=== PATIENT | female | born 1975 | race Caucasian/White ===

== ENCOUNTER 2016-10-18 18:24 | Emergency (ER) | payer MEDICAID ==
[~2016-10-18] VITALS: Wt 80.9 kg
[~2016-10-18 18:24] MED LIST: ACET1TAB40 PO; ALBU8.5H3 INH; CALC600T PO; FERR-55 PO; INSU500V SC; METF500T PO; NPH,100I5 SQ; PRED20TA PO; PREN1TAB13 PO
[2016-10-18] MEDS ORDERED: BENZ100C70 PO (19:55)
[2016-10-18] MEDS ORDERED: AZIT250T94 PO (19:55)
[2016-10-18] MEDS ORDERED: ALBU18HF INHALATION (19:55)
[2016-10-18 20:09] VITALS: BP 136/80; PULSE 90; RESP 18; TEMP 98.4
--- NOTE | 2016-10-18 20:57 | ERD ---
ER Documentation Chief Complaint Date/Time DATE: 10/18/16 TIME: 20:53 Chief Complaint COUGH X3 WKS, WHEEZING X3 DAYS, SORE THROAT HPI Patient is a 41-year-old female with diabetes who presents with a cough. The cough started 3 weeks ago. The patient has wheezing for the past 4 days. She has pain in her upper back. She has had no treatment as of yet. She denies fevers. Upon review of old medical records she has multiple visits to the ER for various complaints. She says her primary doctor is at [facility]. ROS All systems reviewed and are negative except as per history of present illness. Medications Home Meds Active Scripts Benzonatate* (Tessalon Perle*) 100 Mg Capsule, 100 MG PO Q8H Y for COUGH, #30 CAP Prov:MADISON MONTANA MD 10/18/16 Albuterol Sulfate* (Ventolin HFA*) 18 Gm Hfa.aer.ad, 2 PUFF INHALATION Q4H, #1 INHALER Prov:MADISON MONTANA MD 10/18/16 Azithromycin* (Zithromax*) 250 Mg Tablet, 250 MG PO .ZPACK DIRECTED, #6 TAB TAKE 500 MG (2 TABS) THE FIRST DAY THEN 250 MG (1 TAB) DAYS 2-5 Prov:MADISON MONTANA MD 10/18/16 Prednisone* (Prednisone*) 20 Mg Tab, 60 MG PO DAILY for 4 Days, TAB Prov:NITZA LEVY I. [employer]OR RELATIONS MANAGER 10/16/15 Albuterol Sulfate* (Proair HFA*) 8.5 Gm Hfa.aer.ad, 2 PUFF INH Q4, #1 INHALER Prov:NITZA LEVY I. DONOR RELATIONS MANAGER 10/16/15 Acetaminophen-Codeine* (Acetaminophen-Cod #3*) 300-30 Mg Tab, 1 TAB PO Q4H Y for PAIN, #14 TAB Prov:IOANA HERNANDEZ MD 04/12/15 Reported Medications Calcium Carbonate (Calcium) 600 Mg Tablet, 600 MG PO DAILY 04/16/14 Metformin Hcl (Glucophage) 500 Mg Tablet, 500 MG PO HS, TAB 04/16/14 NPH, Human Insulin Isophane (Humulin N Kwikpen) 100 Unit/1 Ml Insuln.pen, 24 UNIT SQ HS 04/16/14 NPH, Human Insulin Isophane (Humulin N Kwikpen) 100 Unit/1 Ml Insuln.pen, 31 UNIT SQ AC BREAKFAST 04/16/14 Insulin Regular, Human (Humulin R) 100 Units/Ml Vial, 17 SC AC DINNER, VIAL 04/16/14 Insulin Regular, Human (Humulin R) 100 Units/Ml Vial, 20 SC AC BREAKFAST, VIAL 04/16/14 Ferrous Sulfate* (Ferrous Sulfate*) 325 Mg Tablet, 325 MG PO DAILY, TAB 04/16/14 Vit-Iron Fumarate-FA ( Vitamins Tablet) 1 Tab Tablet, 1 TAB PO DAILY 10/29/13 Allergies Allergies: Coded Allergies: No Known Drug Allergies (Verified Allergy, Mild, 10/27/12) PMhx/Soc History of Surgery: Yes () Anesthesia Reaction: No Hx Neurological Disorder: No Hx Respiratory Disorders: No Hx Cardiac Disorders: No Hx Psychiatric Problems: No Hx Miscellaneous Medical Probl: Yes (dm,hypothyroidism) Hx Alcohol Use: No Hx Substance Use: No Hx Tobacco Use: No Smoking Status: Never smoker FmHx Family History: diabetes Physical Exam Vitals Vital Signs Date Time Temp Pulse Resp B/P Pulse Ox O2 Delivery O2 Flow Rate FiO2 10/18/16 20:09 98.4 90 18 136/80 94 Room Air 10/18/16 18:29 99.1 79 20 150/72 95 Physical Exam Const: No acute distress Head: Atraumatic Eyes: Normal Conjunctiva ENT: Normal External Ears, Nose and Mouth. Neck: Full range of motion..~ No meningismus. Resp: Expiratory wheezing diffuse lung mayo Cardio: Regular rate and rhythm, no murmurs Abd: Soft, non tender, non distended. Normal bowel sounds Skin: No petechiae or rashes Back: No midline or flank tenderness Ext: No cyanosis, or edema Neur: Awake and alert Psych: Normal Mood and Affect Procedures/MDM Patient is a 41-year-old female with diabetes who presents with a cough. The patient is also wheezing. Given her length of symptoms I believe she likely has a bronchitis. I will treat her with Zithromax for 5 days. Given her wheezing I will also treat her with albuterol. She will be given Tessalon Perles for cough. At this point I doubt pneumonia, pneumothorax, or pulmonary embolism. I believe outpatient management is appropriate. However she will need close follow-up with her primary doctor within 24-48 hours. She can return for any worsening symptoms. Departure Diagnosis: Primary Impression: Bronchitis Additional Impression: Cough Condition: Fair Patient Instructions: Bronchitis, Antiobiotic Treatment (Adult) Referrals: Your doctor Additional Instructions: Llame al doctor MAANA y blue ari CYN PARA DENTRO DE 1-2 ALVAREZ.Dgale a la secretaria que nosotros le instruimos hacer esta cyn.Avise o llame si thurston condicin se empeora antes de la cyn. Regresa aqui si peor o no mejor. MADISON MONTANA MD Oct 18, 2016 20:57
== END 2016-10-18 20:14 | disposition home or self-care (01) ==
LOC: FTE 18:24
DX: J20.9 Acute bronchitis, unspecified (principal); E11.9 Type 2 diabetes mellitus without complications; E03.9 Hypothyroidism, unspecified; Z79.4 Long term (current) use of insulin; Z79.84 Long term (current) use of oral hypoglycemic drugs
CPT/HCPCS: 99284

== ENCOUNTER 2017-10-09 09:25 | Emergency (ER) | END 2017-10-09 12:35 | disposition home or self-care (01) ==